=== PATIENT | male | born 1940 | race Caucasian/White ===

== ENCOUNTER 2016-07-06 11:25 | Emergency (ER) | payer MEDICARE, OTHER ==
[~2016-07-06] VITALS: Ht 172.7 cm; Wt 81.8 kg
[~2016-07-06 11:25] MED LIST: ASPI-628 PO; BILBERRY; BUPR100T15 PO; CHOL200016 PO; FEXO180T85 PO; FLUT16SP2 NS; MELO7.5O PO; PARO30TA75 PO; PRIM50TA PO; RANI150T11 PO; SIMV20TA4 PO; TADA20TA PO
[2016-07-06 11:28] VITALS: BP 122/60; PULSE 75; RESP 18; O2SAT 96
--- NOTE | 2016-07-06 12:20 | DRSVH ---
PROCEDURE: X-RAY CHEST, TWO VIEWS ([id number]) INDICATIONS: fall, L rib pain TECHNIQUE: 2 views of the chest were acquired. COMPARISON: None. FINDINGS: Surgical changes and devices: None. Lungs and pleura: No pleural effusions or pneumothorax. Lungs are clear. Mild left hemidiaphragm e levation. Mediastinum: Mediastinal contours are normal. Heart size is normal. Bones and chest wall: Osteopenia. No suspicious bony abnormalities. Soft tissues appear unremarkabl e. IMPRESSION: No acute cardiopulmonary disease. Dictated by: Benigno Henderson M.D. on 07/06/2016 at 12:18 Approved by: Benigno Henderson M.D. on 07/06/2016 at 12:19
--- NOTE | 2016-07-06 12:23 | ED.REPORT ---
HPI-General Illness Date of Service Jul 06, 2016 ED Provider: Robert is an otherwise healthy 75-year-old male who presents today with left rib pain following 2 falls on the ice early this morning. He reports landing on his left side. Denies any other injuries. Denies hitting his head, losing consciousness. Denies use of blood thinners, shortness of breath, cough, wheeze , abdominal pain, lightheadedness, chest pain, palpitations. Nursing Notes Stated Complaint: POST FALL/RIB PAIN Chief Complaint: Multiple Trauma/Fall Nursing Notes Reviewed: Yes Allergies: Coded Allergies: lovastatin (Verified Allergy, Severe, MYALGIA, ELEV. CK, 09/12/14) Sulfa (Sulfonamide Antibiotics) (Verified Allergy, Unknown, UNKNOWN, ) hydromorphone (Verified Adverse Reaction, Severe, N&V, 09/12/14) Scheduled Aspirin (Aspir 81) 81 Mg Tablet.dr 81 MG PO every other day Bupropion (Bupropion) 100 Mg Tablet 100 MG PO DAILY Cholecalciferol (Vitamin D3) (Vitamin D) 2,000 Unit Tablet 2,000 UNIT PO DAILY Fexofenadine (Kori Allergy) 180 Mg Tablet 180 MG PO DAILY Fluticasone Propionate (Flonase Nasal) 16 Gm [place].susp 1 SPRAY NS DAILY Meloxicam (Meloxicam) 7.5 Mg/5 Ml Oral.susp 7.5 MG PO DAILY Paroxetine (Paxil) 30 Mg Tablet 15 MG PO HS Primidone (Primidone) 50 Mg Tablet 50 MG PO DAILY Ranitidine HCl (Ranitidine) 150 Mg Tablet 150 MG PO DAILY Simvastatin (Simvastatin) 20 Mg Tablet 10 MG PO HS Scheduled PRN Tadalafil (Cialis) 20 Mg Tablet 20 MG PO PRN PRN PRN For Anxiety As directed by physician. Miscellaneous Medications ([bilberry 1 daily]) General Time Seen by MD: 12:22 Chief Complaint Other (left rib pain) Past Medical History Smoking History Former Smoker Review of Systems HEENT: Denies congestion, headache, sore throat. Respiratory: Denies dyspnea, cough, shortness of breath, wheezing. Cardiovascular: Denies chest pain, palpitations. Gastrointestinal: Denies vomiting, diarrhea, abdominal pain. Otherwise as noted in HPI. Physical Exam General: Well appearing, well developed, well nourished, no acute distress. Left ribs: Normal to inspection and tender over lateral aspect. Head: Atraumatic, normocephalic. Eyes: No scleral icterus or injection. No discharge. Vision grossly intact. ENT: Voice clear, hearing grossly intact. Respiratory: Regular rate and rhythm. Breath sounds present, clear to auscultation and equal bilaterally. Cardiovascular: Regular rate and rhythm, without murmur, gallop or rub. No pedal edema. Gastrointestinal: Left upper quadrant tenderness with guarding. Bowel sounds normoactive. Negative [place] Moody sign. Negative [place] sign. Skin: Warm and dry. Neurological: Grossly nonfocal. Psychological: Alert and oriented. Speech appropriate, linear and logical. Behavior appropriate. Vital Signs Vital Signs Date Time Temp Pulse Resp B/P Pulse Ox O2 Delivery O2 Flow Rate FiO2 07/06/16 14:24 36.4 55 16 143/81 95 Room Air 07/06/16 11:28 36.2 75 18 122/60 96 Room Air Interpretation & Diagnostics X-Ray Chest Interpretation Chest Xray Interpretation: PROCEDURE: X-RAY CHEST, TWO VIEWS ([id number]) INDICATIONS: fall, L rib pain IMPRESSION: No acute cardiopulmonary disease. PROCEDURE: X-RAY LEFT RIBS, TWO VIEWS ([id number]) INDICATIONS: fall, trauma Lungs and pleura: Left basilar atelectasis. No pleural effusions or pneumothorax are visible. IMPRESSION: No displaced left rib fractures. Re-Eval/Medical Decision Med Decision/Clinical Course Otherwise healthy 75-year-old male presents with left-sided rib pain following 2 falls on the ice. Denies striking his head, losing consciousness, use of blood thinners. Physical reveals some tenderness on the lateral ribs and some mild left upper quadrant tenderness. I considered back injury such as a splenic laceration, consult with Dr. tabares whomever they examined the patient. He feels confident discharging the patient with strict return precautions. X-rays are negative for rib fractures but show some left basilar atelectasis. I believe this is a left rib contusion and I am reassured that this is not splenic laceration, hemothorax, pneumothorax, rib fracture. Provided counseling regarding use of [id number] analgesia as well as pain medication patient was previously prescribed. Prescribed incentive spirometry hourly while awake. Discharged with primary care follow-up instructions, return precautions. Discharge & Departure Primary Impression: Contusion of rib on left side Encounter type: initial encounter Qualified Code: S20.212A - Contusion of left front wall of thorax, initial encounter Disposition: Home Discharge Condition All VS Reviewed: Yes Condition: Stable Patient Instructions: Contusions in Adults (ED) Additional Instructions: Evaluation for left-sided rib pain in the emergency department. X-rays reveal no fractures to ribs. Physical exam is reassuring regarding a lung or spleen injury. I believe this is a contusion to your ribs. Treatment is supportive. Rest, and ice the affected area about 4 times a day. The pain is best treated with 800 mg of ibuprofen (Advil, Motrin) every 6 hours, or 1000 mg of acetaminophen (Tylenol) every 6 hours. These drugs can be taken at the same time for more severe pain. If he still needs more pain control, you can substitute one of your pain pills for one of the Tylenol pills. Follow up with your primary care provider if your pain is not improving in a week or so. Return emergency Department for any new or worsening symptoms including shortness of breath, difficulty breathing, increasing pain, swelling or bruising in your abdomen. Referrals: Leigh Ann Rowe MD (PCP) EDSupervising Provider for APC: Kory Tabares MD Attending Statement Attending attestation: I saw this patient in conjunction with Osmel Moody PA-C. I agree with the workup, evaluation, treatment and disposition. Kory Tabares MD copies to: Leigh Ann Rowe MD, Beck O MD Jul 06, 2016 12:23 Osmel Moody PA-C Jul 06, 2016 13:45
--- NOTE | 2016-07-06 13:33 | DRSVH ---
PROCEDURE: X-RAY LEFT RIBS, TWO VIEWS ([id number]) INDICATIONS: fall, trauma TECHNIQUE: 2 views of the left ribs were acquired. COMPARISON: [facility], CR, XR CHEST 2VW, 07/06/2016, 12:06. FINDINGS: Surgical changes and devices: None. Bones and chest wall: No fractures or dislocations. No suspicious bony lesions. Overlying soft tis sues appear unremarkable. Degenerative changes noted in upper lumbar spine. Lungs and pleura: Left basilar atelectasis. No pleural effusions or pneumothorax are visible. IMPRESSION: No displaced left rib fractures. Dictated by: Benigno Henderson M.D. on 07/06/2016 at 13:29 Approved by: Benigno Henderson M.D. on 07/06/2016 at 13:32
[2016-07-06 14:24] VITALS: BP 143/81; PULSE 55; RESP 16; O2SAT 95
== END 2016-07-06 14:17 | disposition home or self-care (01) ==
LOC: SED 11:25
DX: S20.212A Contusion of left front wall of thorax, initial encounter (principal); W00.9XXA Unspecified fall due to ice and snow, initial encounter; Y93.9 Activity, unspecified; Y92.9 Unspecified place or not applicable; Y99.8 Other external cause status; Z87.891 Personal history of nicotine dependence; Z79.82 Long term (current) use of aspirin; Z88.5 Allergy status to narcotic agent; Z88.8 Allergy status to other drugs, medicaments and biological substances; Z88.2 Allergy status to sulfonamides

== ENCOUNTER 2016-12-06 19:27 | Emergency (ER) | payer MEDICARE, OTHER ==
[~2016-12-06] VITALS: Ht 172.7 cm; Wt 73.6 kg
[2016-12-06 19:38] VITALS: BP 143/76; PULSE 72; RESP 16; O2SAT 98
[2016-12-06] MEDS ORDERED: ASPI-973 PO ×2 (20:56→21:27)
[2016-12-06] MEDS ORDERED: ARIP5TAB20 PO (20:56)
[2016-12-06] MEDS ORDERED: FLUT15.88 NS (20:57)
[2016-12-06] MEDS ORDERED: LUTE6TAB PO (21:14)
[2016-12-06] MEDS ORDERED: BILB100C PO (21:14)
[2016-12-06] MEDS ORDERED: MELO-253 PO (21:14)
[2016-12-06] MEDS ORDERED: LORA0.5T PO (21:14)
[2016-12-06] MEDS ORDERED: TRAZ-115 PO (21:25)
[2016-12-06] MEDS ORDERED: VIT1TABL83 PO (21:25)
[2016-12-06] MEDS ORDERED: RAMI10CA PO (21:25)
[2016-12-06] MEDS ORDERED: CHOL200025 PO (21:25)
[2016-12-06] MEDS ORDERED: PARO10TA2 PO (21:25)
[2016-12-06] MEDS ORDERED: ACYC30OI TOP (21:25)
[2016-12-06] MEDS ORDERED: RANI150C4 PO (21:27)
[2016-12-06] MEDS ORDERED: MULT-1073 PO (21:29)
--- NOTE | 2016-12-06 21:48 | ED.REPORT ---
HPI-Psychiatric Illness Date of Service Dec 06, 2016 ED Provider: Dionte Betts MD Patient is a 75 year old male with a history of depression, anxiety and hypertension who presents to the ED due to suicidal ideations. Associated symptoms include insomnia and anxiety. He reports that he has been anxious around knives and thinks he might hurt himself. Patient has no previous suicide attempts. The patient states that he has been overwhelmed with his depression and "had enough". He has tried other antidepressant medications other than Paroxetine (he was experiencing the side effect of erectile dysfunction) but they were not effective. Per the patient's , he has been sleeping better for the past week after recently starting Trazodone. Nursing Notes Stated Complaint: SUICIDAL Chief Complaint: Psychiatric Complaint Nursing Notes Reviewed: Yes Allergies: Coded Allergies: lovastatin (Verified Allergy, Severe, MYALGIA, ELEV. CK, 09/12/14) Sulfa (Sulfonamide Antibiotics) (Verified Allergy, Unknown, UNKNOWN, ) hydromorphone (Verified Adverse Reaction, Severe, N&V, 09/12/14) Scheduled Aripiprazole (Aripiprazole) 5 Mg Tablet 2.5 MG PO QAM Aspirin (Aspirin) 81 Mg Tablet 81 MG PO EVERY OTHER DAY Bilberry (Bilberry) 100 Mg Capsule 100 MG PO EVERY OTHER DAY Cholecalciferol (Vitamin D3) (Vitamin D3) 2,000 Unit Tablet 2,000 UNIT PO QAM Fexofenadine (Kori Allergy) 180 Mg Tablet 180 MG PO QAM Lorazepam (Lorazepam) 0.5 Mg Tablet 0.5 MG PO TID Lutein (Lutein) 6 Mg Tablet 6 MG PO QAM Multivits-Min/FA/Lycopene/Lut (Centrum Silver Tablet) 1 Each Tablet 1 EACH PO QAM Paroxetine (Paroxetine) 10 Mg Tablet 15 MG PO HS Primidone (Primidone) 50 Mg Tablet 100 MG PO HS Ramipril (Ramipril) 10 Mg Capsule 10 MG PO QAM Simvastatin (Simvastatin) 20 Mg Tablet 10 MG PO HS Trazodone (Trazodone) 50 Mg Tablet 50 MG PO HS Vit B Comp/C/FA/Iron/Vit E (Vitamin B Complex Tablet) 1 Each Tablet 1 EACH PO QAM Scheduled PRN Acyclovir (Zovirax) 2 Applic/Gm Oint 1 APPLIC TOP 6X/DAY PRN PRN HERPES OUTBREAK Fluticasone Propionate (Fluticasone Propionate) 50 Mcg/Actuation [place].susp 1 SPRAY NS DAILY PRN PRN For Congestion Meloxicam (Meloxicam) 15 Mg Tablet 15 MG PO DAILY PRN PRN For Pain Ranitidine (Ranitidine) 150 Mg Capsule 150 MG PO DAILY PRN PRN For Dyspepsia or Heartburn Tadalafil (Cialis) 20 Mg Tablet 20 MG PO DAILY PRN PRN for sexual activity As directed by physician. General Time Seen by MD: 21:48 Chief Complaint Suicidal ideation Hx Obtained From: Patient, Spouse Arrived By: Walk-in Onset Occurred: More than a week ago... Recent Healthcare: No recent hospitalization, Recent doctor visit Similar Sx Previous: Yes Risk-Psychiatric Illness Suicide Risk Stratification Suicide Risk Factors - Adult: No: Alcohol use, Previous attempt, Substance abuse RF Statements: Risk factors reviewed Past Medical History Past Medical History Notes: Med list: Paroxetine, Trazodone, Abilify, Lorazepam and Primidone Past Medical History depression anxiety Reports: Hypertension Smoking History Former Smoker Social History Other Social History: Good social support, Ambulatory Status Independent Review of Systems Constitutional: Denies: Chills, Fever Respiratory: Denies: Non-productive cough, Shortness of breath Skin: Denies Itching, Denies Rash Psychiatric: Reports: Anxiety, Depression, Insomnia, Stress, Suicidal ideation Complete sys rev & neg: except as marked. Physical Exam Initial Vital Signs Vital Signs (First) Date Time Temp Pulse Resp B/P Pulse Ox O2 Delivery O2 Flow Rate FiO2 12/06/16 19:38 36.7 72 16 143/76 98 Room Air Initial VS: Reviewed General/Constitutional: Awake, Alert, No acute distress Neurologic: Oriented X3, Speech NL, No motor deficits, No sensory deficits Abnormal Mood/Affect: Positive: Anxious, Depressed Abnormal Thinking / Perception: Positive: Suicidal, no plan Head / Eyes: Atraumatic, Normocephalic, PERRL, EOMI Skin: Atraumatic, Color NL, No rash, Warm, Dry Interpretation & Diagnostics Lab Results Interpretation Result Diagram: 12/06/16222412/06/162224 Test 12/06/16 22:25 12/06/16 22:26 White Blood Count 9.5th/mm3 (3.8-10.1) Red Blood Count 5.22mil/mm3 (4.40-5.80) Hemoglobin 13.6g/dL (13.8-17.2) Hematocrit 40.6% (41.0-50.0) Mean Corpuscular Volume 77.8fL (81-100) Mean Corpuscular Hemoglobin 26.1pg (27.0-35.0) Mean Corpuscular Hemoglobin Concent 33.5% (32.0-37.0) Red Cell Distribution Width 13.6% (12.3-15.4) Platelet Count 270bil/L (150-400) Neutrophils (%) (Auto) 55.1% (40-74) Lymphocytes (%) (Auto) 30.9% (14-46) Monocytes (%) (Auto) 9.1% (4-12) Eosinophils (%) (Auto) 3.9% (0-5) Basophils (%) (Auto) 0.7% (0-3) Sodium Level 137mEq/L (134-144) Potassium Level 4.1mEq/L (3.5-5.2) Chloride Level 98mEq/L (97-108) Carbon Dioxide Level 23mmol/L (18-29) Blood Urea Nitrogen 15mg/dL (8-27) Creatinine 0.88mg/dL (0.76-1.27) Estimat Glomerular Filtration Rate 89mL/min (>59) Glucose Level 84mg/dL (60-99) Calcium Level 8.8mg/dL (8.5-10.1) Total Bilirubin 0.3mg/dL (0.0-1.2) Aspartate Amino Transf (AST/SGOT) 27U/L (0-50) Alanine Aminotransferase (ALT/SGPT) 25U/L (0-44) Alkaline Phosphatase 50U/L (25-160) Total Protein 6.8g/dL (6.4-8.4) Albumin 3.9g/dL (3.4-5.0) Thyroid Stimulating Hormone (TSH) 4.160uIU/mL (0.450-4.500) Hold [place] Top Tube Received (Received) Hold Urine Received (Received) Re-Eval/Medical Decision Med Decision/Clinical Course 75-year-old chronic depression worsening steadily despite treatment with multiple meds. He is feeling grossly suicidal but not actively so at the moment. No bed available upstairs, and he will require healthcare social worker intervention for possible admission placement. I think is appropriate that he be admitted, but he is not uncontrolled at this point and does not require involuntary admission. He is discharged home for now with plan to return for social service evaluation. Screening labs done tonight are unremarkable. Urine tox is negative and breathalyzer zero. Discharge with his to continue his current meds and return tomorrow for social service. Re-Evaluation/Progress #1: Time of Eval: 22:24 Re-Evaluation/Progress Note: Discussed plan to talk with the psych floor at 2300 for possible admit. Re-Evaluation/Progress #2: Time of Eval: 23:21 Re-Evaluation/Progress Note: Discussed plan to return to the ED in the morning since there was no bed available for the night. Patient understands and agrees to plan. All questions were addressed. Consultation : Consulted With: Psychiatry Call Returned at: 23:19 Note: Psych reports they do not have a bed available for the night. Counseled Regarding: Diagnosis, Lab results, Need for follow-up, When/why to return to ED Discharge & Departure Impression: Primary Impression: Depression Depression Type: unspecified Qualified Code: F32.9 - Major depressive disorder, single episode, unspecified Additional Impression: Suicidal ideation )( Condition at Discharge: No danger to self, No danger to others Disposition: Home Discharge Condition All VS Reviewed: Yes Condition: Stable Patient Instructions: Depression (ED) Additional Instructions: Return if you have uncontrollable suicidal thoughts. Return if you are feeling unsafe. Return tomorrow morning at 9:30 or so for social service evaluation. You are blood work and urine have already been accomplished and are normal. I think admission for evaluation and medication adjustment would be entirely reasonable, and I hope we can get that arranged for you tomorrow. Referrals: Leigh Ann Rowe MD (PCP) Leo Attestation Portions of this note were transcribed by Yecenia Hurst. I, Dr. Betts personally performed the history, physical exam and medical decision-making; I reviewed and confirmed the accuracy of the information in the transcribed note. Signed by: Leo Bender, 12/06/16 and 2203 copies to: Leigh Ann Rowe MD, Christopher W MD Dec 06, 2016:48 Lexie Hurst Dec 06, 2016 22:00
[2016-12-06 22:29] LABS: BASOPHILS % (AUTO) 0.7 % (0-3); EOSINOPHILS % (AUTO) 3.9 % (0-5); MONOCYTES % (AUTO) 9.1 % (4-12); Mean Corpuscular Hemoglobin 26.1 pg (27.0-35.0); Mean Corpuscular Volume 77.8 fL (81-100); NEUTROPHILS % (AUTO) 55.1 % (40-74); Platelet Count 270 bil/L (150-400)
== END 2016-12-06 23:33 | disposition home or self-care (01) ==
LOC: SED 19:27
DX: F32.9 Major depressive disorder, single episode, unspecified (principal); R45.851 Suicidal ideations; F41.9 Anxiety disorder, unspecified; I10 Essential (primary) hypertension; Z79.82 Long term (current) use of aspirin; Z87.891 Personal history of nicotine dependence; Z88.2 Allergy status to sulfonamides; Z88.5 Allergy status to narcotic agent; Z88.8 Allergy status to other drugs, medicaments and biological substances

== ENCOUNTER 2016-12-07 08:40 | Emergency (ER) | payer MEDICARE, OTHER ==
[~2016-12-07] VITALS: Ht 172.7 cm; Wt 73.6 kg
[~2016-12-07 08:40] MED LIST changes: +ACYC30OI TOP; +ARIP5TAB20 PO; -ASPI-628 PO; +ASPI-973 PO; +BILB100C PO; -BILBERRY; -BUPR100T15 PO; -CHOL200016 PO; +CHOL200025 PO; +FLUT15.88 NS; -FLUT16SP2 NS; +LORA0.5T PO; +LUTE6TAB PO; +MELO-253 PO; -MELO7.5O PO; +MULT-1073 PO; +PARO10TA2 PO; -PARO30TA75 PO; +RAMI10CA PO; +RANI150C4 PO; -RANI150T11 PO; +TRAZ-115 PO; +VIT1TABL83 PO
[2016-12-07 08:44] VITALS: BP 152/75; PULSE 68; RESP 18; O2SAT 99
--- NOTE | 2016-12-07 09:08 | ED.REPORT ---
HPI-Psychiatric Illness Date of Service Dec 07, 2016 ED Provider: Kory Tabares MD The patient is a 75 year old male with history of depression, anxiety, and hypertension, who returns to the emergency department for a social work consult. The patient was seen in the ED last night by Dr. Ivan Betts for worsening depression, suicidal ideation, insomnia, and increased stress. He was sent home with his and told to return this morning to see the social services analyst. The patient states he has been experiencing depression for the last 1- 1.5 years. Initially he was taking fluoxetine but was experiencing erectile dysfunction. Over the last year he has tried several different medications that were unsuccessful and now he is back on fluoxetine again. Recently he has experienced increased stress caused by arranging necessary house repairs. The patient is worried that he will harm himself at home. He does not have any specific plans to harm himself at this time. He has no previous history of suicide attempts. He denies homicidal ideation, visual hallucinations or auditory hallucinations. He does not use any illicit drugs. He drinks alcohol rarely. The patient ideally would like to be hospitalized for treatment. He denies any physical complaints at this time. Nursing Notes Stated Complaint: DEPRESSION AND SUICIDAL THOUGHTS Chief Complaint: Psychiatric Complaint Nursing Notes Reviewed: Yes Allergies: Coded Allergies: lovastatin (Verified Allergy, Severe, MYALGIA, ELEV. CK, 09/12/14) Sulfa (Sulfonamide Antibiotics) (Verified Allergy, Unknown, UNKNOWN, ) hydromorphone (Verified Adverse Reaction, Severe, N&V, 09/12/14) Scheduled Aripiprazole (Aripiprazole) 5 Mg Tablet 2.5 MG PO QAM Aspirin (Aspirin) 81 Mg Tablet 81 MG PO EVERY OTHER DAY Bilberry (Bilberry) 100 Mg Capsule 100 MG PO EVERY OTHER DAY Cholecalciferol (Vitamin D3) (Vitamin D3) 2,000 Unit Tablet 2,000 UNIT PO QAM Fexofenadine (Kori Allergy) 180 Mg Tablet 180 MG PO QAM Lorazepam (Lorazepam) 0.5 Mg Tablet 0.5 MG PO TID Lutein (Lutein) 6 Mg Tablet 6 MG PO QAM Multivits-Min/FA/Lycopene/Lut (Centrum Silver Tablet) 1 Each Tablet 1 EACH PO QAM Paroxetine (Paroxetine) 10 Mg Tablet 15 MG PO HS Primidone (Primidone) 50 Mg Tablet 100 MG PO HS Ramipril (Ramipril) 10 Mg Capsule 10 MG PO QAM Simvastatin (Simvastatin) 20 Mg Tablet 10 MG PO HS Trazodone (Trazodone) 50 Mg Tablet 50 MG PO HS Vit B Comp/C/FA/Iron/Vit E (Vitamin B Complex Tablet) 1 Each Tablet 1 EACH PO QAM Scheduled PRN Acyclovir (Zovirax) 2 Applic/Gm Oint 1 APPLIC TOP 6X/DAY PRN PRN HERPES OUTBREAK Fluticasone Propionate (Fluticasone Propionate) 50 Mcg/Actuation [place].susp 1 SPRAY NS DAILY PRN PRN For Congestion Meloxicam (Meloxicam) 15 Mg Tablet 15 MG PO DAILY PRN PRN For Pain Ranitidine (Ranitidine) 150 Mg Capsule 150 MG PO DAILY PRN PRN For Dyspepsia or Heartburn Tadalafil (Cialis) 20 Mg Tablet 20 MG PO DAILY PRN PRN for sexual activity As directed by physician. General Time Seen by MD: 09:07 Chief Complaint Depressed, Suicidal ideation Hx Obtained From: Patient Arrived By: Walk-in Onset Occurred: More than a week ago... Symptom Duration: Since onset Progression Since Onset: Constant, Gradually worsening Severity: Current: No pain currently Severity: Maximum: No pain Recent Healthcare: No recent hospitalization, Recent doctor visit Similar Sx Previous: Yes Risk-Psychiatric Illness Suicide Risk Stratification Suicide Risk Factors - Adult: : Access to firearmsNo: Alcohol use, Previous attempt, Substance abuse RF Statements: Risk factors reviewed Past Medical History Past Medical History Notes: Med list: Paroxetine, Trazodone, Abilify, Lorazepam and Primidone Past Medical History Depression Anxiety Reports: Hypertension Family History Noncontributory Smoking History Former Smoker Social History Alcohol Use: "Social" (rarely) Drug Use: Denies drug use Other Social History: Good social support, , Local resident Ambulatory Status Independent Review of Systems Constitutional: Denies: Chills, Fever Respiratory: Denies: Non-productive cough, Shortness of breath Cardiovascular: Denies: Chest pain GI: Denies: Abdominal pain, Diarrhea, Nausea, Vomiting Skin: Denies Rash Neurologic: Denies: Headache Psychiatric: Reports: Depression, Insomnia, Stress, Suicidal ideation, Unable to control self, Denies: Hallucinations, auditory, Hallucinations, visual, Homicidal ideation Complete sys rev & neg: except as marked. Physical Exam Initial Vital Signs Vital Signs (First) Date Time Temp Pulse Resp B/P Pulse Ox O2 Delivery O2 Flow Rate FiO2 12/07/16 08:44 36.8 68 18 152/75 99 Room Air Initial VS: Reviewed Head / Eyes: Atraumatic, Normocephalic, PERRL ENT: Mucous membranes moist, Conjunctiva normal, No scleral icterus Neck: Supple, Non-tender, Full range of motion Respiratory: Breath sounds normal, Clear to auscultation, No respiratory distress Cardiovascular: Regular rate & rhythm, Heart sounds normal, Intact distal pulses Abdomen / GI: Soft, Non-tender, No guarding, No rebound, No distention Extremities: Vascular intact, Neuro intact, No swelling, No tenderness Skin: Warm, Dry, No cyanosis General/Constitutional: Awake, Alert, No acute distress, Well appearing, Cooperative Neurologic: Oriented X3, Speech NL, No motor deficits, No sensory deficits, Cerebellar NL, Memory NL, Gait NL Psychiatric: Not homicidal, No hallucinations Abnormal Mood/Affect: Positive: Depressed Abnormal Thinking / Perception: Positive: Suicidal, no plan Lower Extremity / Pelvis / MS: Neurologic intact, Vascular intact, No edema No calf swelling or tenderness. Re-Eval/Medical Decision Med Decision/Clinical Course The patient is a 75 year old male with history of depression, anxiety, and hypertension, who returns to the emergency department for a social work consult. The patient was seen in the ED last night by Dr. Ivan Betts for worsening depression, suicidal ideation, insomnia, and increased stress. He was sent home with his and told to return this morning to see the social services analyst. The patient states he has been experiencing depression for the last 1- 1.5 years. Initially he was taking fluoxetine but was experiencing erectile dysfunction. Over the last year he has tried several different medications that were unsuccessful and now he is back on fluoxetine again. Recently he has experienced increased stress caused by arranging necessary house repairs. The patient is worried that he will harm himself at home. He does not have any specific plans to harm himself at this time. He has no previous history of suicide attempts. He denies homicidal ideation, visual hallucinations or auditory hallucinations. He does not use any illicit drugs. He drinks alcohol rarely. The patient ideally would like to be hospitalized for treatment. He denies any physical complaints at this time. Here in the emergency department the patient is afebrile with stable vital signs in no apparent distress. In the course of the patient's emergency department evaluation and/or tension the patient has several "old guns" at home that may or may not be functional and have no ammunition. Arrangements have been made for a member of his congregational to remove these firearms from the home. The patient was seen and evaluated by her emergency department social services analyst. The patient does not desire voluntary admission to the hospital. He has no ongoing suicidal ideation or intent. He is apparently struggled with depression for many years and has never attempted to commit suicide. He has been provided with additional resources for outpatient management of his depression. He is felt to be safe for discharge at this time. Urine drug screen and blood alcohol were negative. He has strong support through family and . Prior to discharge follow-up and return precautions were reviewed in detail with the patient who verbalized understanding and agreement with the plan. The patient was discharged in stable condition. Source of Hx: Old records, Family Re-Evaluation/Progress #1: Time of Eval: 09:24 Re-Evaluation/Progress Note: Discussed plan for social work consult. Re-Evaluation/Progress #2: Time of Eval: 12:46 Re-Evaluation/Progress Note: Rechecked the patient. Discussed plan for discharge. All questions were addressed. Consultation #1: Consulted With: bottle line worker Call Returned at: 10:00 Note: Spoke to the ED social services analyst about the patient's case. He will see and evaluate the patient. Consultation #2: Consulted With: bottle line worker Call Returned at: 12:41 Note: The patient told social work that he is not currently suicidal and that this comes in waves. He has an appointment with his provider on this and has an appointment with a geriatric psychiatrist on Tuesday. Safety plan developed with support of and congregational friends. The patient is safe to be discharged at this time. Counseled Regarding: Diagnosis, Lab results, Need for follow-up, When/why to return to ED Discharge & Departure Impression: Primary Impression: Suicidal ideation Additional Impressions: Depression Depression Type: unspecified Qualified Code: F32.9 - Major depressive disorder, single episode, unspecified Acute situational disturbance )( Condition at Discharge: No danger to self, No danger to others, No suicidal ideation, No homicidal ideation Disposition: Home Discharge Condition All VS Reviewed: Yes Condition: Stable Additional Instructions: Thank you for entrusting us with your care today. Followup with your provider as scheduled on . As well as your appointment with the psychiatrist on Tuesday. Make sure to have your and/or congregational friends to remove the guns from your house. Continue to take your normally prescribed medications. Please return to the emergency department any time for increased suicidal ideations, or any other new or concerning symptoms. Referrals: Leigh Ann Rowe MD (PCP) [place] [facility] Portions of this note were transcribed by Sushma Lilly. I, Dr. Tabares personally performed the history, physical exam and medical decision-making; I reviewed and confirmed the accuracy of the information in the transcribed note. Signed by: Leo Parks, 12/07/2016 at 1300. copies to: Leigh Ann Rowe MD, Beck O MD Dec 07, 2016 09:08 Sushma Lilly Dec 07, 2016 09:16
[2016-12-07 13:45] VITALS: BP 147/66; PULSE 61; RESP 20; O2SAT 100
== END 2016-12-07 14:07 | disposition home or self-care (01) ==
LOC: SED 08:40
DX: R45.851 Suicidal ideations (principal); F32.9 Major depressive disorder, single episode, unspecified; F43.0 Acute stress reaction; F41.9 Anxiety disorder, unspecified; I10 Essential (primary) hypertension; Z87.891 Personal history of nicotine dependence; Z79.82 Long term (current) use of aspirin; Z88.2 Allergy status to sulfonamides; Z88.5 Allergy status to narcotic agent; Z88.8 Allergy status to other drugs, medicaments and biological substances